=== PATIENT | female | born 1965 | race Caucasian/White ===

== ENCOUNTER → 2019-06-07 | Day surgery (SDC) | payer OTHER ==
[~2019-06-07] MED LIST: IV RINGERS,LACTATED 1000ML 1,000 ML IV ONE; PROPOFOL 40 ML IV ONE
--- NOTE | 2019-06-07 12:00 | PREOP HP ---
DATE OF SERVICE: 06/07/2019 DATE OF PROCEDURE: 06/07/2019 REQUESTING PHYSICIAN: Alessia Perla MD PRIMARY CARE PHYSICIAN: Alessia Perla MD REASON FOR PROCEDURE: Colorectal cancer screening and dysphagia. HISTORY OF PRESENT ILLNESS: This is a 54-year-old female who presents today for colorectal cancer screening with a colonoscopy as well as for dysphagia. PAST MEDICAL HISTORY: 1. Anxiety. 2. Depression. 3. Reflux. ALLERGIES: MORPHINE. FAMILY MEDICAL HISTORY: Negative for colorectal cancer. MEDICATIONS: MAR reviewed. REVIEW OF SYSTEMS: A 13-point review of systems was done. It is positive as per HPI and otherwise negative. PHYSICAL EXAMINATION: VITAL SIGNS: She is afebrile and her vital signs are stable. GENERAL: She is a well-developed, well-nourished female, in no apparent distress. HEENT: Oropharynx is clear. CARDIOVASCULAR: S1, S2. LUNGS: Clear. ABDOMEN: Normoactive bowel sounds, soft, nontender, nondistended. EXTREMITIES: No edema. NEUROLOGIC: Awake, alert and oriented x 3. ASSESSMENT AND PLAN: 1. Dysphagia. The risks and benefits of an upper endoscopy including bleeding, perforation, non-diagnosis and sedation were explained and she has agreed to proceed. 2. Colorectal cancer screening. The risks and benefits of colonoscopy including bleeding, perforation, non-diagnosis and sedation were explained and she has agreed to proceed. Thank you for allowing me to participate in the care of this patient. KINSEY FLORENCE MD DR: MARTHA/moses JOB#: [id number] / [id number]
[2019-06-07 12:04] VITALS: BP 138/78
--- NOTE | 2019-06-08 12:07 | PATHOLOGY ---
[facility] Accession Number: [id number] . 01 Material submitted: . PART A: small bowel - SMALL BOWEL BIOPSY PART B: stomach - GASTRIC ANTRUM AND BODY BIOPSY PART C: esophagus - DISTAL ESOPHAGUS BIOPSY. Modifiers: distal PART D: esophagus - MID ESOPHAGUS BIOPSY. Modifiers: mid PART E: colon - SIGMOID POLYP BIOPSY. Modifiers: sigmoid . 01 Clinical history: . GERD, dysphagia, CRC screen . 02 Diagnosis: A. Small bowel biopsies: - No significant pathologic abnormalities. . B. Gastric biopsies, gastric antrum and body: - Chronic gastritis, mild. . C. Esophageal biopsies, distal esophagus: - Segments of esophagogastric and gastric mucosa showing chronic inflammation, consistent with reflux changes. . D. Esophageal biopsy, middle esophagus: - Segment of squamous esophageal mucosa showing no significant pathologic abnormalities. . E. Colon biopsies, sigmoid polyp: - Tubular adenoma. . (JPM:mm; 06/08/2019) [facility] 06/08/2019 1001 Local . 02 Comment: Sections of the small bowel biopsy reveal segments of duodenal and small intestine mucosa. Where best oriented, the mucosal villi show no sprue-like changes or significant inflammatory changes. . Sections of the gastric biopsy reveal segments of gastric antral and gastric body mucosa showing congestion and mild chronic inflammation. A properly-controlled immunoperoxidase stain for Helicobacter is negative for Helicobacter organisms. . Sections of the distal esophageal biopsy reveal a single segment of esophagogastric mucosa and two segments of gastric mucosa. The segment of esophagogastric mucosa shows moderate chronic inflammation and hyperplastic squamous esophageal mucosa focally containing a few intraepithelial eosinophils. The segments of gastric mucosa show congestion and mild chronic inflammation. The findings are consistent with reflux changes. There is no evidence of Schuster's change, dysplasia or malignancy. . Sections of the middle esophageal biopsy reveal a segment of squamous esophageal mucosa showing no significant pathologic abnormalities. . Sections of the sigmoid colon biopsy reveal a tubular adenoma showing no high grade dysplasia or evidence of malignancy. . Special stain (B1): Immunoperoxidase stain for Helicobacter . (JPM:mml; 06/08/2019) . 02 Electronically signed: . Maciel Campoverde MD, Pathologist NPI- [id number] . 01 Gross description: . A. Received in formalin labeled "Clifton, Jasmina, small bowel BX," are 4 segments of solomon soft tissue measuring 1.1 x 0.9 x 0.3 cm in aggregate dimensions and ranging from 0.4 to 0.5 cm in maximum dimension. The specimen is submitted entirely in cassette A1. . B. Received in formalin labeled "Clifton, Jasmina, gastric antrum and body," are 3 segments of solomon soft tissue measuring 1.0 x 0.9 x 0.2 cm in aggregate dimensions and ranging from 0.4 to 0.6 cm in maximum dimension. The specimen is submitted entirely in cassette B1. . C. Received in formalin labeled "Clifton, Jasmina, distal esophagus BX," are 3 segments of solomon soft tissue measuring 1.0 x 0.6 x 0.3 cm in aggregate dimensions and ranging from 0.3 to 0.6 cm in maximum dimension. The specimen is submitted entirely in cassette C1. . D. Received in formalin labeled "Clifton, Jasmina, mid esophagus BX," is a single segment of solomon soft tissue measuring 0.5 cm in maximum dimension. The specimen is entirely submitted in cassette D1. . E. Received in formalin labeled "Clifton, Jasmina, sigmoid polyp BX," are 2 segments of solomon soft tissue measuring 0.7 x 0.2 x 0.2 cm in aggregate dimensions and ranging from 0.3 to 0.4 cm in maximum dimension. The specimen is submitted entirely in cassette E1. (TSD; 06/07/2019) TOB/TOB 06/07/2019 1815 Local . 02 Pathologist provided ICD-10: K29.50, K20.8, D12.5 . 02 CPT . 938729, [id number], 436021, 396470, [id number], [id number] Specimen Comment: A courtesy copy of this report has been sent to [phone], [phone] Specimen Comment: [id number] Specimen Comment: Report sent to / DR COOL Performed at: 01 [facility] [address] [id number] MD Stevan Curran MD Phone: [phone] Performed at: 02 [facility] [address] [place], [place] [id number] MD Maciel Campoverde MD Phone: [phone]
== END ==
LOC: ENDOS 09:16
PROVIDERS: ATTEND Internal Medicine Gastroenterology
DX: Z12.11 Encounter for screening for malignant neoplasm of colon (principal); D12.5 Benign neoplasm of sigmoid colon; K29.50 Unspecified chronic gastritis without bleeding; K21.0 Gastro-esophageal reflux disease with esophagitis; K64.0 First degree hemorrhoids; F41.9 Anxiety disorder, unspecified; F32.9 Major depressive disorder, single episode, unspecified; Z88.6 Allergy status to analgesic agent
CPT/HCPCS: 43239; 43450; 45380; 88305; 88342; J2704; 45378